=== PATIENT | female | born 1985 | race Caucasian/White ===

== ENCOUNTER 2020-08-24 19:42 | Emergency (ER) | payer BC, OTHER ==
[~2020-08-24] VITALS: Ht 172.7 cm; Wt 63.5 kg
[2020-08-24 20:03] LABS: BASOPHILS 0.4 % (0.0-2.0); EOSINOPHILS 0.1 % (0.0-3.0); HEMOGLOBIN 14.2 gm/dL (12.0-15.0); RBC 4.47 mil/uL (4.20-5.00)
[2020-08-24 20:04] LABS: ABSOLUTE NEUTROPHILS 9.4 thou/uL (1.4-8.2); LYMPHOCYTES 11.9 % (24.0-44.0); MCH 31.8 pg (26.0-34.0); MCV 96.3 fL (80.0-100.0); MONOCYTES 7.1 % (1.0-8.0); PLATELET COUNT 298 thou/uL (150-400); POLYS 80.5 % (36.0-66.0); RDW 12.9 % (10.5-14.5); WBC 11.7 thou/uL (4.0-11.0)
[2020-08-24 20:10] LABS: CALCIUM 9.3 mg/dL (8.5-10.1); CREATININE 1.1 mg/dL (0.6-1.0); POTASSIUM 3.2 mmol/L (3.5-5.1)
[2020-08-24] MEDS ORDERED: HALDOL 0.5 MG0.5 M1 PO (20:51)
[2020-08-24 20:58] VITALS: BP 122/74
== END 2020-08-24 20:59 | disposition home or self-care (01) ==
LOC: ER 19:42
PROVIDERS: Emergency Medicine
DX: F12.188 Cannabis abuse with other cannabis-induced disorder (principal); R11.15 Cyclical vomiting syndrome unrelated to migraine; R10.13 Epigastric pain